=== PATIENT | female | born 1960 | race Hispanic/Latino ===

== ENCOUNTER 2018-03-21 19:28 | Emergency (ER) | payer OTHER ==
[~2018-03-21] VITALS: Ht 162.6 cm; Wt 81.2 kg
[2018-03-21] MEDS ORDERED: KETOROLAC TROMETHAMINE 60 MG/2 ML VIAL ONE (19:57)
[2018-03-21] MEDS ORDERED: HYDROCODONE/APAP 10MG-325MG TAB ONE (19:57)
[2018-03-21] MEDS ORDERED: CYCLOBENZAPRINE HCL 10 MG TAB ONE (19:57)
[2018-03-21] MEDS ORDERED: CYCLOBENZAPRINE HCL 10 MG TAB PO ONE (20:00)
[2018-03-21] MEDS ORDERED: KETOROLAC TROMETHAMINE 60 MG/2 ML VIAL IM ONE (20:00)
[2018-03-21] MEDS ORDERED: HYDROCODONE/APAP 10MG-325MG TAB PO ONE (20:00)
--- NOTE | 2018-03-21 22:00 | Diagnostic Imaging Report ---
History: Back injury at work. Low back pain Comparison studies: None Technique: Axial images were obtained from T11 through the sacrum. Coronal and sagittal images reconstructed from the axial data. Intravenous contrast: None Findings: Number of non-rib bearing vertebral bodies: 5 Alignment: Mild grade 1 lesions of L3 over L4. No scoliosis. Soft tissues: No paraspinal abnormalities. Mild punctate atherosclerotic calcifications of the abdominal aorta Paraspinal muscles: Unremarkable. Vertebrae: No fractures, infection or neoplasm. Degenerative changes: L1-L2: No abnormalities. L2-L3: Mild diffuse disc bulge without significant canal stenosis or foraminal narrowing L3-L4: Is degeneration with decreased jugular space. Mild diffuse disc bulge and mild facet hypertrophy results in mild canal stenosis, and moderate left foraminal narrowing L4-L5: Mild diffuse disc bulge without significant canal stenosis or foraminal narrowing L5-S1: Diffuse disc bulge without canal stenosis or foraminal narrowing Sacroiliac joints: No degenerative changes. IMPRESSION: 1. No acute spinal abnormality. Moderate degenerative left foraminal narrowing at L3-L4 secondary to mild grade 1 anterolisthesis, posterior disc bulge and facet hypertrophy. Other mild degenerative changes as described above. Signed by: DR Elliott Lunsford M.D. on 03/21/2018 9:57 PM
== END 2018-03-21 22:37 | disposition home or self-care (01) ==
LOC: ER 19:28
DX: M54.42 Lumbago with sciatica, left side (principal); M54.41 Lumbago with sciatica, right side; I10 Essential (primary) hypertension; E11.9 Type 2 diabetes mellitus without complications; I25.10 Atherosclerotic heart disease of native coronary artery without angina pectoris
CPT/HCPCS: 72131; 99283; J1885